=== PATIENT | female | born 1990 | race Caucasian/White ===

== ENCOUNTER 2018-11-12 14:25 | Emergency (ER) | payer MEDICAID ==
[~2018-11-12] VITALS: Ht 170.2 cm; Wt 81.8 kg
[~2018-11-12 14:25] MED LIST: AZIT-63 PO
[2018-11-12 16:30] VITALS: BP 135/72
== END 2018-11-12 16:57 | disposition home or self-care (01) ==
LOC: ER 14:25
DX: G89.18 Other acute postprocedural pain (principal); H92.02 Otalgia, left ear; J04.0 Acute laryngitis; Z88.0 Allergy status to penicillin; Z79.899 Other long term (current) drug therapy
CPT/HCPCS: 99281

== ENCOUNTER 2021-05-27 05:42 | Day surgery (SDC) | payer MEDICAID ==
[2021-05-21 15:00] LABS: BASOPHILS % (AUTO) 0.7 % (0-1); EOSINOPHILS # (AUTO) 0.1 X10'3 (0-0.9); LYMPHOCYTES # (AUTO) 2.2 X10'3 (1.1-4.8); LYMPHOCYTES % (AUTO) 30.1 % (21-51); MEAN CORPUSCULAR HEMOGLOBIN 29.5 PG (27.0-31.0); MEAN CORPUSCULAR HGB CONC 34.7 g/dL (33.0-36.5); MEAN CORPUSCULAR VOLUME 84.9 FL (78-98); MEAN PLATELET VOLUME 8.5 FL (7.4-10.4); MONOCYTES # (AUTO) 0.5 X10'3 (0-0.9); MONOCYTES % (AUTO) 6.9 % (2-12); NEUTROPHILS # (AUTO) 4.5 X10'3 (1.8-7.7); NEUTROPHILS % (AUTO) 61.3 % (42-75); PRE OP HEMATOCRIT 35.7 % (35.0-45.0); PRE OP HEMOGLOBIN 12.4 g/dL (12.0-16.0); PRE OP PLATELET COUNT 325 X10'3 (140-440)
[2021-05-21 15:06] LABS: PRE OP PROTIME 10.7 SECONDS (9.0-12.0)
[2021-05-21 15:07] LABS: CLARITY,URINE SLIGHTLY CLOUDY (Clear); COLOR,URINE YELLOW (Yellow); GLUCOSE, URINE NEGATIVE (Neg); KETONES,URINE NEGATIVE (Neg); LEUKOCYTE ESTERASE ,URINE NEGATIVE (Neg); NITRITES, URINE NEGATIVE (Neg); OCCULT BLOOD,URINE LARGE (Neg); PROTEIN,URINE NEGATIVE (Neg); UA COLLECTION TYPE CLN CATCH MIDSTREAM; UROBILINOGEN,URINE 0.2 E.U/dL (0.2-1.0)
[2021-05-21 15:10] LABS: BACTERIA,URINE 1+ /HPF (Neg); MUCUS STRANDS FEW /LPF (Neg); SQUAMOUS EPITHELIAL CELL,UR MODERATE /LPF (FEW)
[2021-05-21 15:11] LABS: ALKALINE PHOSPHATASE 82 IU/L (46-116); BLOOD UREA NITROGEN 10 MG/DL (7-18); BUN/CREATININE RATIO 11.2 (6.6-38.0); CHLORIDE 107 MMOL/L (99-107); CREATININE 0.89 MG/DL (0.40-0.90); PRE OP ALT 38 U/L (30-65); PRE OP ANION GAP 7 (8-16); PRE OP AST 23 U/L (10-37); PRE OP BILIRUB, TOTAL 0.4 MG/DL (0.0-1.0); PRE OP GLUCOSE 100 MG/DL (70-104); PRE OP POTASSIUM 3.8 MMOL/L (3.4-5.1); PRE OP SODIUM 141 MMOL/L (135-145); TOTAL CARBON DIOXIDE 26.6 MMOL/L (24-32); TOTAL PROTEIN 7.9 G/DL (6.4-8.2); eGFR 74 ML/MIN
[~2021-05-27] VITALS: Ht 170.2 cm; Wt 90.7 kg
[2021-05-27] VITALS (9 sets, daily range): BP systolic 119–136; BP diastolic 79–89
[~2021-05-27 05:42] MED LIST changes: -AZIT-63 PO; +NO HOME MEDS; +clindamycin-Cleocin 900mg/D5W 50 ML IV ONE; +famotidine 20mg tablet PO ONE; +gentamicin inj 450 MG in normal saline 100ml IV soln 88.75 ML IV ONE; +ringers solution, lacted 1,000 ML IV SCH; +scopolamine 1mg/72 hr patch TD ONE
[2021-05-27] MEDS ORDERED: BUPIVAcaine/PF 2.5mg/ml (0.25%) 10ml vial ONE (07:02)
[2021-05-27] MEDS ORDERED: meperidine/PF 25mg/ml syringe IV PRN ×3 (08:00)
[2021-05-27] MEDS ORDERED: proCHLORperazine 10 MG/2 ml inj IV PRN (08:00)
[2021-05-27] MEDS ORDERED: ringers solution, lacted 1,000 ML IV SCH (08:00)
[2021-05-27] MEDS ORDERED: morphine 4 MG/ML inj SYRINge IV PRN (08:00)
[2021-05-27] MEDS ORDERED: morphine 2 MG/ML inj. syringe IV PRN (08:00)
[2021-05-27] MEDS ORDERED: ondansetron/PF 4mg/2ml inj IV PRN (08:00)
[2021-05-27] MEDS ORDERED: neostigmine methylsulfate 1 MG/ML 10ml vial ONE (08:21)
[2021-05-27] MEDS ORDERED: dexamethasone sod phosphate 10mg/ml inj ONE (08:21)
[2021-05-27] MEDS ORDERED: sevoflurane 250ml liquid IH ONE (08:21)
[2021-05-27] MEDS ORDERED: rocuronium 10mg/ml inj IV ONE (08:21)
[2021-05-27] MEDS ORDERED: acetaminophen 1000 MG/100ml vial IV ONE (08:21)
[2021-05-27] MEDS ORDERED: propofol 10mg/ml 20ml vial IV ONE (08:21)
[2021-05-27] MEDS ORDERED: sugammadex 200mg/2ml injection IV ONE (08:21)
[2021-05-27] MEDS ORDERED: fentaNYL/PF 50MCG/1 ML 2ML syringe ONE (08:21)
[2021-05-27] MEDS ORDERED: LIDOcaine 1%/PF 5ML 10 MG/ML VIAL ONE (08:21)
[2021-05-27] MEDS ORDERED: glycopyrrolate 0.2mg/ml inj ONE (08:21)
[2021-05-27] MEDS ORDERED: midazolam 1 mg/ML 2ml injection ONE (08:21)
[2021-05-27] MEDS ORDERED: ondansetron/PF 4mg/2ml inj ONE (08:21)
--- NOTE | 2021-05-27 09:30 | NUR ---
Received from OR via [facility] IN STABLE CONDITION , accompanied by Anesthesiologist and HAZARDOUS WASTE MATERIAL TECHNICIAN report given by OR AND OR Anesthesiolterell. Addendum: 05/27/21 at 1010 by Georgie Cruz RN Amended: Links added.
[2021-05-27] MEDS ORDERED: ketorolac trometh. 30mg/ml inj. IV ONE (10:35)
--- NOTE | 2021-05-27 11:10 | NUR ---
PATIENT DISCHARGED HOME FROM PACU IN STABLE CONDITION AFTER WRITTEN AND VERBAL DISCHARGE INSRUCTIONS GIVEN. PATIENT GAVE VERBAL UNDERSTANDING OF INSTRUCTIONS GIVEN. PATIENT LEFT FACILITY IN WHEELCHAIR WITH RN. Addendum: 05/27/21 at 1137 by Georgie Cruz RN Amended: Links added.
== END 2021-05-27 11:10 | disposition home or self-care (01) ==
LOC: PAS 05:42
PROVIDERS: ATTEND Surgery
DX: K81.1 Chronic cholecystitis (principal); G43.909 Migraine, unspecified, not intractable, without status migrainosus; Q85.1 Tuberous sclerosis; E66.9 Obesity, unspecified; Z68.32 Body mass index [BMI] 32.0-32.9, adult; Z79.01 Long term (current) use of anticoagulants; Z20.822 Contact with and (suspected) exposure to COVID-19; Z79.899 Other long term (current) drug therapy; Z98.890 Other specified postprocedural states; Z91.040 Latex allergy status; Z91.09 Other allergy status, other than to drugs and biological substances; Z88.0 Allergy status to penicillin
CPT/HCPCS: 36415; 47562; 80053; 81001; 85025; 85610; 85730; 86885; 86900; 86901; 87088; C9399; J0131; J0780; J1100; J1580; J1885; J2250; J2405; J2704; J2710; J3010; J3490; J7120; U0003; U0005; Z7506; Z7508; Z7512; A4215; A4618; A7000

== ENCOUNTER 2022-01-19 16:37 | Emergency (ER) | payer MEDICAID ==
[~2022-01-19] VITALS: Ht 170.2 cm; Wt 90.0 kg
[~2022-01-19 16:37] MED LIST changes: -clindamycin-Cleocin 900mg/D5W 50 ML IV ONE; -famotidine 20mg tablet PO ONE; -gentamicin inj 450 MG in normal saline 100ml IV soln 88.75 ML IV ONE; -ringers solution, lacted 1,000 ML IV SCH; -scopolamine 1mg/72 hr patch TD ONE
[2022-01-19 17:26] LABS: CLARITY,URINE SLIGHTLY CLOUDY (Clear); COLOR,URINE YELLOW (Yellow); GLUCOSE, URINE NEGATIVE (Neg); KETONES,URINE NEGATIVE (Neg); LEUKOCYTE ESTERASE ,URINE NEGATIVE (Neg); NITRITES, URINE NEGATIVE (Neg); OCCULT BLOOD,URINE NEGATIVE (Neg); PROTEIN,URINE NEGATIVE (Neg); UROBILINOGEN,URINE 0.2 E.U/dL (0.2-1.0)
[2022-01-19 17:27] LABS: URINE HCG NEGATIVE (NEG)
[2022-01-19 17:32] LABS: UA COLLECTION TYPE CLN CATCH MIDSTREAM
[2022-01-19 17:33] LABS: ALANINE AMINOTRANSFERASE 35 U/L (12-78); ALKALINE PHOSPHATASE 73 IU/L (46-116); ANION GAP 6 (8-16); ASPARTATE AMINO TRANSFERASE 25 U/L (10-37); BILIRUBIN,TOTAL 0.4 MG/DL (0.1-1.0); BLOOD UREA NITROGEN 13 MG/DL (7-18); BUN/CREATININE RATIO 15.1 (6.6-38.0); CALCIUM 8.9 MG/DL (8.5-10.1); CHLORIDE 107 MMOL/L (99-107); CREATININE 0.86 MG/DL (0.40-0.90); GLUCOSE 93 MG/DL (70-104); LIPASE 105 U/L (73-393); POTASSIUM 3.8 MMOL/L (3.5-5.1); SODIUM 141 MMOL/L (135-145); TOTAL CARBON DIOXIDE 27.7 MMOL/L (24-32); TOTAL PROTEIN 8.2 G/DL (6.4-8.2); eGFR 77 ML/MIN
[2022-01-19 17:34] LABS: SQUAMOUS EPITHELIAL CELL,UR MANY /LPF (FEW)
[2022-01-19 17:35] LABS: MUCUS STRANDS MANY /LPF (Neg)
[2022-01-19 17:35] LABS: BASOPHILS % (AUTO) 0.6 % (0-1); EOSINOPHILS # (AUTO) 0.1 X10'3 (0-0.9); EOSINOPHILS % (AUTO) 2.1 % (0-6); HEMATOCRIT 36.9 % (35.0-45.0); HEMOGLOBIN 12.6 g/dl (12.0-16.0); LYMPHOCYTES # (AUTO) 2.1 X10'3 (1.1-4.8); LYMPHOCYTES % (AUTO) 32.8 % (21-51); MEAN CORPUSCULAR HEMOGLOBIN 28.3 PG (27.0-31.0); MEAN CORPUSCULAR HGB CONC 34.1 g/dL (33.0-36.5); MEAN CORPUSCULAR VOLUME 82.8 FL (78-98); MONOCYTES # (AUTO) 0.6 X10'3 (0-0.9); NEUTROPHILS # (AUTO) 3.5 X10'3 (1.8-7.7); NEUTROPHILS % (AUTO) 54.5 % (42-75); PLATELET COUNT 310 X10'3 (140-440); RED BLOOD COUNT 4.45 X10'6 (4.20-5.60); RED CELL DISTRIBUTION WIDTH 13.2 % (11.5-14.5); WHITE BLOOD COUNT 6.4 X10'3 (4.5-11.0)
[2022-01-19 17:36] LABS: BACTERIA,URINE FEW /HPF (Neg)
[2022-01-19 17:39] LABS: RBC,URINE 0-2 /HPF (0-2)
[2022-01-19 18:17] VITALS: BP 117/63
[2022-01-19] MEDS ORDERED: ibuprofen tablet 400 MG TABLET PO ONE (18:25)
[2022-01-19] MEDS ORDERED: acetaminophen 325mg tablet PO ONE (18:25)
== END 2022-01-19 18:37 | disposition home or self-care (01) ==
LOC: ER 16:38
DX: R10.10 Upper abdominal pain, unspecified (principal); Z91.030 Bee allergy status; Z88.0 Allergy status to penicillin
CPT/HCPCS: 36415; 80053; 81001; 81025; 83690; 85025; 99283

== ENCOUNTER 2023-01-15 10:32 | Emergency (ER) | payer MEDICAID ==
[~2023-01-15] VITALS: Ht 170.2 cm; Wt 90.0 kg
[2023-01-15 10:41] VITALS: BP 155/67
[2023-01-15] MEDS ORDERED: ibuprofen tablet 400 MG TABLET PO ONE (11:25)
[2023-01-15] MEDS ORDERED: SULF1TAB49 PO (11:25)
[2023-01-15] MEDS ORDERED: IBUP-1986 PO (11:25)
[2023-01-15] MEDS ORDERED: sulfamethoxazole/trimethoprim DS (800/160mg) tablet PO ONE (11:25)
== END 2023-01-15 12:23 | disposition home or self-care (01) ==
LOC: ER 10:32
DX: L72.9 Follicular cyst of the skin and subcutaneous tissue, unspecified (principal); Z91.041 Radiographic dye allergy status; Z88.0 Allergy status to penicillin
CPT/HCPCS: 99283

== ENCOUNTER 2024-10-18 08:16 | Emergency (ER) | payer MEDICAID ==
[~2024-10-18] VITALS: Ht 170.2 cm; Wt 90.9 kg
[~2024-10-18 08:16] MED LIST changes: +IBUP-1986 PO
[2024-10-18] MEDS: LIDOcaine 5% patch TP STA (10:59)
[2024-10-18 11:24] VITALS: BP 113/72; PULSE 73; RESP 16; TEMP 97.8; O2SAT 98
== END 2024-10-18 11:32 | disposition home or self-care (01) ==
LOC: ER 08:17
DX: S13.4XXA Sprain of ligaments of cervical spine, initial encounter (principal); M54.50 Low back pain, unspecified; R51.9 Headache, unspecified; Z91.040 Latex allergy status; Z88.0 Allergy status to penicillin; Z88.6 Allergy status to analgesic agent; Z79.1 Long term (current) use of non-steroidal anti-inflammatories (NSAID); W18.30XA Fall on same level, unspecified, initial encounter; Y93.89 Activity, other specified; Y92.89 Other specified places as the place of occurrence of the external cause; Y99.8 Other external cause status
CPT/HCPCS: 99284